=== PATIENT | female | born 1990 | race Caucasian/White ===

== ENCOUNTER 2024-09-28 07:46 | Inpatient (IN) ==
--- NOTE | 2024-09-28 08:07 | History & Physical Report ---
Date of Service September 28, 2024 Assessment & Plan (1) 39 weeks gestation of : (2) Breech presentation: (3) resulting from in vitro fertilization, antepartum: (4) Elderly primigravida: Plan Today baby breech. She declines attempt at ecv and induction. She wants to p roceed with c/s and will be readied for such. She is aware primary surgeon more likely to be Dr. Perla, given OR schedule. She is aware of risk, benefits alt, injury to surrounding maternal structures, injury to . Admit, iv, labs. will notify nursery and anesth, need to coordinate care with my colleague. Admission and Anticipated Discharge Date Admission Date: September 28, 2024 History of Present Illness Chief Complaint: planned induction, h/o breech presentation Primary Care Provider: Turman Wilkinson MD 34yo at 39+wks ega presents to LD due to planned induction with recent cephalic presentation, despite previously being breech. Patient denies rom, vb. +FM. No ctx. US at beside today breech presentation. Has not eaten anything and ok to proceed with c/s due to malpresentation, unstable lie. PNC c.b 1. obesity, s/p gastric sleeve 2. IVF preg 3. AMA 4. recurrent uti PNL rh pos, ri, gbs neg OBH: g1 GYNH: nl pap no stds Allergies Allergy/AdvReac Type Severity Reaction Status Date / Time nickel Allergy Intermediate Rash Verified 09/24/24 12:48 adhesive tape Allergy Rash Verified 09/24/24 12:48 pollen extracts Allergy Sneezing Verified 09/24/24 12:48 Home Medications Medication Instructions Recorded Confirmed Type calcium carbonate [Calcium 600] 1 cap PO DAILY 03/25/24 09/24/24 History ketoconazole 1 applic topical UD PRN Skin 03/25/24 09/24/24 History Irritation omega-3 fatty acids [Fish Oil] 1 cap PO DAILY 03/25/24 09/24/24 History 21-iron fu-folic acid 1 tab PO DAILY 03/25/24 09/24/24 History [ Complete] breast pump #1 ea 07/30/24 09/24/24 Rx famotidine 20 mg tablet (Pepcid) 20 mg PO QAM 09/14/24 09/24/24 History vitamin A 1 cap PO DAILY 09/14/24 09/24/24 History zinc 1 tab PO DAILY 09/14/24 09/24/24 History Patient History Medical History Anxiety Depression History of COVID-19 2021, resolved Hx of gastroesophageal reflux (GERD) Hypertension hx Migraine hx PCOS (polycystic ovarian syndrome) hx Sleep apnea "mild," no CPAP required, resolved with sx Varicella vaccination Surgical History H/O gastric sleeve 2020 History of esophagogastroduodenoscopy (EGD) Hx of biopsy OVARY> BENIGN w/u pcos Hx of ovarian cystectomy [place] teeth extracted Family History Mother Diabetes Breast cancer Uterine cancer Hypertension Grandfather (Paternal) Diabetes Denies family history of Ovarian cancer Colorectal cancer Social History Smoking Status: Never smoker Second Hand Exposure: No; Do You Dip or Chew Tobacco: No; Hx Alcohol Use: No Hx Substance Use: No Preferred Language: [place] Communication Ability: Effective Steam Boiler Fireman Required: No Beliefs That Will Affect Care: None marital status: marital status details: Benson Pederson [phone] Current Living Situation: Spouse and Family Current Living Situation Comment: lives with spouse, cats-spouse changing litter current occupational status: employed 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 Feels Safe at Home: Yes Assistive Devices: Contacts and Glasses Review of Systems as per Subjective / HPI Physical Exam Constitutional: WD/WN, vitals as above Respiratory: normal respiratory effort, lungs clear to auscultation Cardiovascular: Rate/Rhythm: regular rate and regular rhythm Gastrointestinal (Abdomen): Percussion/Palpation: abdomen soft (obese); abdomen nontender and no guarding Neurologic: grossly normal Psychiatric: A+Ox3, euthymic affect Genitourinary: OB Exam Abdomen: + breech (on u/s) OB Exam Monitor Tracing: + external FHT monitor used, + external uterine monitor used (no ctx), + category I and + normal FHT variability Results & Data Vital Signs (Past 12 Hours) Vital Signs Pulse BP 09/28/24 07:59 83 129/77 Coding Level of Care Code None Diagnoses 39 weeks gestation of Z3A.39 Breech presentation O32.1XX0 resulting from in vitro fertilization, antepartum O09.819 Elderly primigravida O09.519
[2024-09-28 08:49] LABS: Hematocrit (blood only) 38.8 % (37.0-47.0); Hemoglobin 13.1 g/dl (12.0-16.0); Mean Corpuscular Hemoglobin 30.9 pg (25.0-34.0); Mean Corpuscular Volume 91.5 fL (80.0-100.0); Platelet Count 271 K/uL (130-400); RDW Standard Deviation 43.6 fL (36.4-46.3); Red Blood Count 4.24 M/uL (4.20-5.40); White Blood Count 10.92 K/ul (4.8-10.8)
[2024-09-28] MEDS ORDERED: LACTATED RINGER'S 1,000 ML IV SCH ×2 (09:30→13:14)
[2024-09-28] MEDS: LACTATED RINGER'S 1,000 ML IV SCH (09:37)
--- NOTE | 2024-09-28 09:45 | History & Physical Bridge Note ---
Date of Service September 28, 2024 History & Physical Bridge Note I have examined the patient, reviewed the History & Physical and in the interval since the performance of the History & Physical I have noted the following changes of clinical significance: no changes noted We discussed plans for surgery, questions answered. She is in agreement for section.
[2024-09-28] MEDS: ACETAMINOPHEN 500 MG TAB PO SCH (09:50)
[2024-09-28] MEDS ORDERED: OXYTOCIN 10 UNITS/ML VIAL ONE ×2 (09:51→12:10)
[2024-09-28] MEDS ORDERED: DEXAMETHASONE SOD INJ 4 MG/ML VIAL ONE (09:51)
[2024-09-28] MEDS ORDERED: PHENYLEPHRINE HCL 25 MG/250 ML NSS IV ONE (09:51)
[2024-09-28] MEDS ORDERED: GLYCOPYRROLATE 0.2 MG/ML VIAL ONE (09:51)
[2024-09-28] MEDS ORDERED: ONDANSETRON INJ 2 MG/ML 2 ML VIAL ONE (09:51)
[2024-09-28] MEDS ORDERED: MoRPHine SULFATE PF 1 MG/ML 10 ML AMP/VIAL ONE (09:53)
[2024-09-28] MEDS: CITRIC ACID/SODIUM CITRATE 15 ML UDC PO SCH (10:59)
[2024-09-28] MEDS: ceFAZolin 3000MG 3,000 MG/72.5 ML BAG IV SCH (11:00)
[2024-09-28] MEDS: GELATIN SPONGE SZ 100 EXT ONE (12:05)
[2024-09-28 12:14] LABS: Base Excess Cord Venous Blood -2.2 mEq/L (-7.7-1.9); Cord Venous Blood PO2 28 mmHg (14.1-43.3); O2 Saturation Cord Venous Bld < 60.0 % (<68)
[2024-09-28 12:16] LABS: Base Excess Cord Arterial Bld -1.4 mEq/L (-9-1.8); CO2 Cord Arterial Blood 58 mmHg (39.1-73.5); HCO3 Cord Arterial Blood 27 mmol/L (19.7-28.5); Oxygen Sat Cord Arterial Blood < 60.0 % (<60); PO2 Cord Arterial Blood < 20 mmHg (4.1-31.7); pH Cord Arterial Blood 7.27 (7.1-7.38)
--- NOTE | 2024-09-28 12:42 | Operative Report ---
Post Operative Report Pre & Post Diagnosis Operation Date: 09/28/24 09:45 Pre-Op Diagnosis: Intrauterine , primary section, breech presentation Post-Op Diagnosis: same I identified the patient and participated in the time-out.: Yes Procedure Operation Date: 09/28/24 09:45 Actual Procedures p Primary Low Transverse Section in LD for living male child at 1136- Divina Perla DO Surgeon Divina Perla DO Retail Interior Designer Terry Hamlin MD Quantitative Blood Loss (QBL) 535 Findings Consistent with Post-Op Diagnosis Viable male Apgars 8/9, Weight 8#2oz. Normal appearing uterus, fallopian tubes, ovaries. Specimens cord blood, cord gas, placenta Drains pope clear yellow Anesthesia Type Spinal Complications none Disposition Accompanied Patient To Recovery: No Disposition: L&D Indications 34yo @ 39 4/7, breech presentation, obesity, AMA, h/o gastric bypass, IVF Description of Procedure The patient was seen in her labor and delivery room, risks benefits and alternatives to surgery were reviewed. Informed consent obtained. Questions were answered. She was taken to the operating room, spinal anesthesia was administered. She was then prepared and draped in the usual sterile fashion in the supine position with a leftward tilt. Timeout was confirmed. A Pfannenstiel skin incision was made with a scalpel, and carried through to the underlying layer of fascia. Fascia was nicked at midline, and this incision was extended bilaterally. The superior aspect of the fascial incision was grasped with Vega clamps x2, elevated off the underlying rectus abdominis muscles, and dissected sharply and bluntly. In similar fashion, the inferior aspect of the fascial incision was dissected. The rectus abdominis muscles were , and the peritoneum was entered bluntly digitally. This was extended bilaterally. The bladder flap was taken down carefully using Metzenbaum scissors. Using a new scalpel, a low transverse uterine incision was created. Clear amniotic fluid noted. The infant was delivered from a complete breech pre sentation. The bilateral feet delivered, followed by torso, arms swept medially, then head. Spontaneous cry on the field. The cord was doubly clamped and cut, and the infant was handed off to the [facility] electronic heat seal operator. A segment was retained for cord gases. Cord blood was obtained. The placenta was delivered spontaneously intact. The uterus was exteriorized, and cleared of all clots and debris. The hysterotomy incision was reapproximated using 0 Vicryl in a running locked stitch. A second layer of the same suture was used to imbricate the incision. Posterior uterus was evaluated and normal. The uterus was returned to the abdomen, and gutters were cleared of clots and debris. Excellent hemostasis was observed. The fascial incision was reapproximated using 0 Vicryl in a running stitch. The subcutaneous tissue was irrigated, and reapproximated using 2-0 plain gut in a running stitch. The skin was reapproximated using 4-0 Vicryl in a running subcuticular stitch. HENRRY dressing applied. The patient tolerated the procedure well, and will be taken to the recovery area in stable and good condition. I attest to the content of the Intraoperative Record and any orders documented therein. Any exceptions are noted below. OB Procedure Charges 58951
[2024-09-28] MEDS ORDERED: HYDROCORTISONE ACETATE 25 MG SUPP PR PRN (13:14)
[2024-09-28] MEDS ORDERED: MAGNESIUM HYDROXIDE SUSP 30 ML UDC PO PRN (13:14)
[2024-09-28] MEDS ORDERED: PROMETHAZINE 12.5 MG/50.5 ML BAG IV PRN (13:14)
[2024-09-28] MEDS ORDERED: CALCIUM CARBONATE 500 MG CHEWABLE TAB PO PRN (13:14)
[2024-09-28] MEDS ORDERED: diphenhydrAMINE Capsule 25 MG CAP PO PRN (13:14)
[2024-09-28] MEDS ORDERED: SENNA 8.6 MG TAB PO PRN (13:14)
[2024-09-28] MEDS ORDERED: BENZOCAINE 20% SPRY 85 APPLN/85 GM CAN EXT PRN (13:14)
[2024-09-28] MEDS ORDERED: ONDANSETRON INJ 2 MG/ML 2 ML VIAL IV PRN ×2 (13:14→14:58)
[2024-09-28] MEDS ORDERED: KETOCONAZOLE 2% CR 15 GM TUBE EXT PRN (13:16)
[2024-09-28] MEDS: KETOROLAC 30 MG/ML VIAL IV SCH (13:34)
[2024-09-28] MEDS ORDERED: PROMETHAZINE 6.25 MG/50.25 ML BAG IV PRN (14:44)
[2024-09-28] MEDS ORDERED: diphenhydrAMINE 50 MG/ML VIAL IV PRN (14:49)
[2024-09-28] MEDS ORDERED: METOCLOPRAMIDE HCL 20 MG in SODIUM CHLORIDE 0.9% 50 ML IV PRN (14:49)
[2024-09-28] MEDS ORDERED: LACTATED RINGER'S 500 ML IV PRN (14:50)
[2024-09-28] MEDS ORDERED: NALOXONE HCL 0.4 MG/1 ML VIAL/CARP IV PRN (14:50)
[2024-09-28] MEDS ORDERED: NALOXONE HCL 0.08 MG in SYRINGE 1.8 ML IV PRN (14:51)
[2024-09-28] MEDS ORDERED: HYDROmorphone INJ 0.5 MG/0.5 ML SYR IV PRN (14:53)
[2024-09-28] MEDS ORDERED: NALBUPHINE HCL INJ 10 MG/ML AMP IV PRN (14:54)
[2024-09-28] MEDS ORDERED: NALOXONE HCL 1 MG in SODIUM CHLORIDE 0.9% 1,000 ML IV PRN (14:56)
[2024-09-28] MEDS ORDERED: DROPERIDOL 5 MG/2 ML VIAL IV PRN (14:57)
[2024-09-28] MEDS ORDERED: SODIUM CHLORIDE 0.9% 1,000 ML IV SCH (15:00)
[2024-09-28] MEDS ORDERED: DC INTRASPINAL MORPHINE SCH (15:00)
[2024-09-28] MEDS ORDERED: NO NARCOTICS OR SEDATIVES SCH (15:15)
[2024-09-28] MEDS ORDERED: MoRPHine SULFATE PF 1 MG/ML 10 ML AMP/VIAL INT SPINAL ONE (15:15)
[2024-09-28] MEDS: SIMETHICONE 80 MG CHEW PO SCH (17:17)
[2024-09-28] MEDS: OXYTOCIN 20 UNITS/LR 1,002 ML IV SCH (19:38)
[2024-09-28] MEDS: ACETAMINOPHEN 325 MG TAB PO SCH (19:39)
[2024-09-28] MEDS: DOCUSATE SODIUM 100 MG CAP PO SCH (23:37)
[2024-09-29] MEDS ORDERED: HYDROmorphone INJ 0.5 MG/0.5 ML SYR IV PRN (04:51)
[2024-09-29] MEDS ORDERED: diphenhydrAMINE 50 MG/ML VIAL IV PRN (04:51)
[2024-09-29 06:34] LABS: Hematocrit (blood only) 29.4 % (37.0-47.0); Hemoglobin 9.9 g/dl (12.0-16.0); Immature Granulocytes # (auto) 0.06 K/uL (0.01-0.20); Immature Granulocytes % (auto) 0.4 %; Mean Corpuscular Hemoglobin 30.9 pg (25.0-34.0); Mean Corpuscular Volume 91.9 fL (80.0-100.0); Platelet Count 207 K/uL (130-400); RDW Standard Deviation 43.4 fL (36.4-46.3); Red Blood Count 3.20 M/uL (4.20-5.40); White Blood Count 13.40 K/ul (4.8-10.8)
--- NOTE | 2024-09-29 08:05 | Obstetrical Progress Note ---
Date of Service September 29, 2024 Assessment & Plan (1) care following delivery: routine care. stable. will see if lutz improves with time. does not classically sound like spinal lutz to me but will monitor. c/w diet, ambulate, po pain meds. breast, rhpos, ri. hgb noted. Subjective Ambulation: ambulating normally Voiding: no voiding problems Passing Gas:: Yes Diet Tolerance:: regular diet Lochia:: Small Feeding Type:: breast feeding having some lutz this am, was frontal and now top of head. no visual change. hgb 9.9 Constitutional: + as per Subjective / HPI Physical Exam Constitutional WD/WN, vitals as above Respiratory normal respiratory effort, lungs clear to auscultation Cardiovascular Rate/Rhythm: regular rate and regular rhythm Gastrointestinal (Abdomen) Inspection/Auscultation: abdomen normal to inspection and + abdominal surgical incision (jovan dressing ) Percussion/Palpation: abdomen soft Fundus firm 2cm down Musculoskeletal nt calves no edema Neurologic grossly normal Psychiatric A+Ox3, euthymic affect Results & Data Vital Signs (Past 12 Hours) Vital Signs Temp Pulse Pulse Resp BP Pulse Ox O2 Del Method 09/29/24 07:28 98.1 F 68 18 99/70 L 98 Room Air 09/29/24 05:00 16 97 09/29/24 04:05 16 97 09/29/24 04:05 98.1 F 60 16 107/51 L 97 Room Air 09/29/24 03:00 16 98 09/29/24 02:00 18 97 09/29/24 01:10 18 96 09/29/24 00:00 97.9 F 56 L 18 96/61 L 97 Room Air 09/29/24 00:00 18 97 09/28/24 23:00 16 97 09/28/24 22:00 18 98 09/28/24 21:45 18 97
[2024-09-29] MEDS: PRENATAL VITAMIN 1 TAB PO SCH (08:46)
[2024-09-29] MEDS: FAMOTIDINE 20 MG TAB PO SCH (08:46)
[2024-09-29] MEDS: FERROUS SULFATE 325 MG TAB PO SCH (08:46)
[2024-09-29] MEDS: DIPHTHER/TETAN/PERTUS Vaccine (Tdap, Adol/Adult) 0.5mL IM ONE (10:42)
[2024-09-29] MEDS: IBUPROFEN 600 MG TAB PO SCH (13:43)
[2024-09-29] MEDS ORDERED: Nursing to Pharmacy Communication SCH (14:15)
[2024-09-29] MEDS: KETOROLAC 30 MG/ML VIAL IV PRN (17:49)
--- NOTE | 2024-09-29 18:22 | Communication Note ---
Date of Service: September 29, 2024 asked to evaluate the patient for post dural puncture headache. pt had a spinal yesterday thatwas x3. eventually achieved with a 22 g needle. pt noted a headache this AM. Headache statrted frontally and had progressed to the top of her head. vision is unaffected. it is relieved by lying flat. it is made worse by standing. pt also complains of muscle strain in the neck. I do feel that this is a PDPH. I d/w the patient the treatment options. a blood patch was offered but the patient would like to try conservative measures at this point. She is sitting at thirty degrees and not in acute distress, so this is reasonsable. Pt agree to a dose of toradol which nursing later told me helped her. I informed Dr nesbitt of the dx and pt's wishes. pt is aware that we are available to do the blood patch if she changes her mind.
--- NOTE | 2024-09-30 05:31 | Obstetrical Progress Note ---
Date of Service <Colin Hutson MD - Last Filed: 09/30/24 07:21> September 30, 2024 Assessment & Plan <Colin Hutson MD - Last Filed: 09/30/24 07:21> (1) care following delivery: 34yo post-op day 2 s/p section Still has minimal headache but feels well otherwise Continue post- care Encourage ambulation and breast and bottle feeding Pain controlled with Tylenol and Oxycodone Vitals and Hgb stable Agreeable to blood patch today for postdural puncture headache Anaesthesia on board <Juliet Medeiros MD - Last Filed: 09/30/24 07:32> (1) care following delivery: Subjective <Colin Hutson MD - Last Filed: 09/30/24 07:21> 34yo post-op day 2 s/p section Ambulation: Ambulating normally Voiding: No voiding problems Passing Gas:: Yes Diet Tolerance:: regular diet Lochia:: Small Feeding Type:: breast and bottle feeding Current Pain Level: 0/10 controlled with Tylenol, Oxycodone Resting comfortably this AM in NAD. Complains of headache that is located in the frontal and temporal regions of head and radiates to the shoulders. Relieved with laying flat. Rated "minimal" and described as pressure sensation. No vision changes or dizziness. Denies CP, SOB, N/V/D, LE pain/swelling. Physical Exam <Colin Hutson MD - Last Filed: 09/30/24 07:21> General: patient resting comfortably, NAD, non-toxic in appearance, answers questions appropriately Skin: warm, dry, intact Heart: S1/S2 heard, regular, no m/r/g Lungs: equal air entry bilaterally, no rales/rhonchi/wheezes Abd: Normoactive BS, soft, NT/ND, uterine fundus firm below umbilicus, incision covered with HENRRY dressing Ext: warm, no clubbing/cyanosis or edema, Heena's neg Neuro: nonfocal, patient AAOx4, speech intact, no facial droop, moving all extremities on command Results & Data <Colin Hutson MD - Last Filed: 09/30/24 07:21> Vital Signs (Past 12 Hours) Vital Signs Temp Pulse Pulse Resp BP Pulse Ox O2 Del Method 09/29/24 23:10 Room Air 09/29/24 23:10 36.6 C 80 20 119/77 99 Room Air 09/29/24 19:50 36.8 C 77 20 108/62 98 Room Air Supervising Physician <Juliet Medeiros MD - Last Filed: 09/30/24 07:32> Co-Signing Physician Notes Resident Physician Supervision Note: I interviewed and examined the patient. Discussed with Dr. Hutson and agree with findings and plan as documented in the note. Any exceptions or clarifications are listed here: [ ] Documented By: Juliet Medeiros MD, FACOG Resident Activity Tracking <Colin Hutson MD - Last Filed: 09/30/24 07:21> Resident Involvement: Resident Care Provided Care Provided: OB Delivery
[2024-09-30 06:02] LABS: Hematocrit (blood only) 31.5 % (37.0-47.0); Hemoglobin 10.5 g/dl (12.0-16.0)
--- NOTE | 2024-09-30 08:38 | Anesthesia Procedure Note ---
Anesthesia Procedure Note Epidural Blood Patch Procedure Note Date of procedure: 09/30/24 Consent: Risk / Benefits Reviewed With: PT / POA / Parent / Guardian, Accepts Plan, Informed Consent Obtained and All Questions Answered Risks include: Failure of technique, Back pain, Infection, Bleeding, Nerve injury and Dural puncture Monitors attached: Blood Pressure and Pulse Oximetry Time out completed: Yes Premedication: None Position: Sitting Surgical Prep: Hand hygeine: Soap and water Equipment/Supplies: Cap, Mask, Sterile gloves, Sterile drapes and Sterile procedures used Skin prep: Duraprep Local medication: 1% Lidocaine (ml) Venous access site: Right antecubital vein Site: Midline Attempts: 1 Procedure Summary: Time out completed, area prepped and draped. Epidural space entered with 17 G Thouy with GEOFFREY, 20 G IV started with sterile technique, 20 cc of blood were drawn, 15 cc were injected slowly before patient reported significant pressure and asked to stop procedure. Post-Procedure: Pt hemodynamically stable, Pt tolerates well and No complications Anesthesia Charges Indication for Procedure (1) Post-dural puncture headache:
[2024-09-30] MEDS ORDERED: IBUPROFEN 600 MG TAB PO PRN (12:33)
[2024-09-30] MEDS: ACETAMINOPHEN 325 MG TAB PO PRN (19:58)
[2024-09-30 20:57] VITALS: RESP 16
[2024-10-01 01:07] VITALS: O2SAT 98
--- NOTE | 2024-10-01 05:27 | Obstetrical Progress Note ---
Date of Service <Colin Hutson MD - Last Filed: 10/01/24 07:08> October 01, 2024 Assessment & Plan <Colin Hutson MD - Last Filed: 10/01/24 07:08> (1) care following delivery: 34yo post-op day 3 s/p section Continue post- care Encourage ambulation and breast and bottle feeding Pain controlled with Tylenol Vitals and Hgb stable s/p blood patch for postdural puncture headache Plan to d/c home. Follow with OB provider in 6 weeks D/c instructions discussed <Azalea Elizabeth MD - Last Filed: 10/01/24 07:42> (1) care following delivery: Subjective <Colin Hutson MD - Last Filed: 10/01/24 07:08> Review of Systems 34yo post-op day 3 s/p section s/p blood patch for PDPH, no headache present today Ambulation: Ambulating normally Voiding: No voiding problems Passing Gas:: Yes Diet Tolerance:: regular diet Lochia:: Small Feeding Type:: breast and bottle feeding Current Pain Level: 2/10 controlled with Tylenol Resting comfortably this AM in NAD. Denies CP, SOB, N/V/D, LE pain/swelling. Physical Exam <Colin Hutson MD - Last Filed: 10/01/24 07:08> General: patient resting comfortably, NAD, non-toxic in appearance, answers questions appropriately Skin: warm, dry, intact Heart: S1/S2 heard, regular, no m/r/g Lungs: equal air entry bilaterally, no rales/rhonchi/wheezes Abd: Normoactive BS, soft, NT/ND, uterine fundus firm below umbilicus, incision covered with HENRRY dressing Ext: warm, no clubbing/cyanosis or edema, Heena's neg Neuro: nonfocal, patient AAOx4, speech intact, no facial droop, moving all extremities on command Results & Data <Colin Hutson MD - Last Filed: 10/01/24 07:08> Vital Signs (Past 12 Hours) Vital Signs Temp Pulse Resp BP Pulse Ox O2 Del Method 10/01/24 00:00 36.6 C 88 16 109/71 98 Room Air 09/30/24 19:50 36.6 C 93 H 16 100/63 Room Air Supervising Physician <Azalea Elizabeth MD - Last Filed: 10/01/24 07:42> Co-Signing Physician Notes Resident Physician Supervision Note: I interviewed and examined the patient. Discussed with Dr. Hutson and agree with findings and plan as documented in the note. Any exceptions or clarifications are listed here: 34 yo POD3 s/p pCS for breech. LAM improved following blood patch, well otherwise. VSS, exam benign and henrry dressing in place. Mild ranges noted yday am during blood patch but wnl otherwise. Stable for dc Documented By: Azalea Elizabeth MD Resident Activity Tracking <Colin Hutson MD - Last Filed: 10/01/24 07:08> Resident Involvement: Resident Care Provided Care Provided: OB Delivery
[2024-10-01 11:14] VITALS: BP 115/76; PULSE 80; TEMP 98.2
--- NOTE | 2024-10-03 01:49 | Discharge Summary ---
Date of Service October 03, 2024 Admission HPI Per Admitting Provider 34yo at 39+wks ega presents to LD due to planned induction with recent cephalic presentation, despite previously being breech. Patient denies rom, vb. +FM. No ctx. US at beside today breech presentation. Has not eaten anything and ok to proceed with c/s due to malpresentation, unstable lie. PNC c.b 1. obesity, s/p gastric sleeve 2. IVF preg 3. AMA 4. recurrent uti PNL rh pos, ri, gbs neg OBH: g1 GYNH: nl pap no stds Discharge Data Consultations 09/28/24 08:18 Consult Anesthesiology Stat Procedures Performed Operation Date: 09/28/24 09:45 Actual Procedures p Section in LD for living male child at 1136(Bilateral) - Divina Perla DO Hospital Course (1) care following delivery: 34yo post-op day 3 s/p section Continue post- care Encourage ambulation and breast and bottle feeding Pain controlled with Tylenol Vitals and Hgb stable s/p blood patch for postdural puncture headache Plan to d/c home. Follow with OB provider in 6 weeks D/c instructions discussed Supervising Physician Co-Signing Physician Notes Resident Physician Supervision Note: I interviewed and examined the patient. Discussed with Dr. Hutson and agree with findings and plan as documented in the note. Any exceptions or clarifications are listed here: 34 yo POD3 s/p pCS for breech. LAM improved following blood patch, well otherwise. VSS, exam benign and jovan dressing in place. Mild ranges noted yday am during blood patch but wnl otherwise. Stable for dc Documented By: Azalea Elizabeth MD Coding Level of Care Code None Diagnoses care following delivery Z39.2
== END 2024-10-01 13:45 | disposition home or self-care (01) | DRG 787 ==
LOC: 4S1 07:46 → 4E2 16:06
DX: O99.355 Diseases of the nervous system complicating the puerperium; O32.1XX0 Maternal care for breech presentation, not applicable or unspecified; G97.1 Other reaction to spinal and lumbar puncture; Z37.0 Single live birth; Z91.048 Other nonmedicinal substance allergy status; Z3A.39 39 weeks gestation of pregnancy